=== PATIENT | male | born 1995 | race Hispanic/Latino ===

== ENCOUNTER 2024-11-28 12:24 | Emergency (ER) | payer BC ==
[~2024-11-28] VITALS: Ht 165.1 cm; Wt 99.8 kg
[2024-11-28 12:35] VITALS: PULSE 102; RESP 16; TEMP 98.8; O2SAT 98
[2024-11-28 12:59] LABS: INFLUENZA A AG NEGATIVE (NEGATIVE); INFLUENZA B AG NEGATIVE (NEGATIVE)
[2024-11-28 13:00] LABS: CORONAVIRUS COVID-19 AG NEGATIVE (NEGATIVE)
[2024-11-28] MEDS ORDERED: OFLOXACIN5 ML OP (13:11)
[2024-11-28] MEDS ORDERED: MUCINEX DM ER1 EACH PO (13:11)
== END 2024-11-28 14:28 | disposition home or self-care (01) ==
LOC: ER 12:30
DX: R09.89 Other specified symptoms and signs involving the circulatory and respiratory systems (principal); J06.9 Acute upper respiratory infection, unspecified; Z11.52 Encounter for screening for COVID-19
CPT/HCPCS: 99283